=== PATIENT | male | born 1990 | race Caucasian/White ===

== ENCOUNTER 2020-02-10 07:44 | Emergency (ER) | payer BC, SELFPAY ==
[2020-02-10] VITALS (9 sets, daily range): BP systolic 128–150; BP diastolic 72–95; PULSE 71–101; RESP 16–18; TEMP 36.7; O2SAT 96–100; BMI 48.7
--- NOTE | 2020-02-10 07:50 | CT_ITS ---
WS: [id number] CT CHEST, ABDOMEN AND PELVIS WITH CONTRAST. HISTORY: trauma; fell 12 ft; chest pain TECHNIQUE: Contiguous 5 mm axial imaging performed through the chest, abdomen and pelvis with IV cont rast, oral contrast has been provided. Coronal and sagittal reformats chest. Coronal and sagittal ref ormats through the abdomen and pelvis. All CT scans at [facility] use at least one of the se dose optimization techniques: automated exposure control; mA and/or kV adjustment per patient size (includes targeted exams where dose is matched to clinical indication); or iterative reconstruction. CONTRAST: Omnipaque 300; 95 mL IV. DLP: 3340.7 mGy.cm COMPARISON: None available. Chest CT: Moderate size LEFT pneumothorax. No midline shift or tension pneumothorax. There is a small amount of dense pleural fluid from bleeding. No laceration is identified. Mild dependent changes in the RIGHT lung. Normal aorta and pulmonary artery. No laceration. No mediastinal hematoma widening. N o mass or adenopathy. Abnormal configuration of the RIGHT heart. RIGHT ventricle is more rounded in s hape. There is also a tiny amount of fluid adjacent to the RIGHT ventricle. Abdomen CT: Mild hepatic steatosis. No splenic or hepatic injury or adjacent fluid. Gallbladder and p ancreas are negative. No renal injury. 2.0 cm cyst upper pole LEFT kidney. Small extrarenal pelvis on the LEFT. Normal abdominal aorta. No retroperitoneal or mesenteric hematoma. No GI tract obstruction or wall thickening. Normal appendix. Pelvic CT: Well-distended urinary bladder. No free fluid in the pelvis. No adenopathy.1 Nondisplaced anterior LEFT third and sixth rib fractures are identified. LEFT ilium fracture. Fracture extends inferiorly to involve the acetabulum. Medial and anterior colu mn of the acetabulum are fractured but nondisplaced. There is also a nondisplaced buckle fracture thr ough the inferior LEFT pubic rami. No hip fracture. No sacral fracture or malalignment at the SI join ts. CT/CT chest abd pel w con* IMPRESSION: 1. Moderate-sized LEFT pneumothorax without tension. 2. Abnormal configuration of the RIGHT heart with a tiny amount of adjacent fl uid. Recommend echocardiography for additional evaluation. 3. Nondisplaced third LEFT rib fracture. Additional mildly depressed anterior LEFT sixth rib fracture. 4. Acute nondisplaced fracture involving the LEFT ilium extending inferiorly t o involve the acetabulum. Nondisplaced fractures involve the medial acetabulum and the anterior column. Mild buckle fracture inferior LEFT pubic rami. 5. Mild hepatic steatosis. 6. No hepatic or splenic injury. Notified IDA Chavez at 02/10/2020 9:03 AM.
--- NOTE | 2020-02-10 07:51 | ED_ITS ---
Documented by User: IDA Chavez 02/10/20 09:41 HPI - Fall General: Chief Complaint: Fall Stated Complaint: Fall from tree stand Time Seen by Provider: 02/10/20 07:50 Source: patient and EMS Mode of arrival: EMS Limitations: no limitations History of Present Illness: HPI Narrative: Patient is a 30-year-old male who presents to ED today via EMS for evaluation after falling out of his deer stand. Patient tells me his deer stand strap broke causing him to fall at a height of 12 feet onto his left side. Patient presents today with left-sided rib pain and left hip pain. He denies striking his head or LOC. He is not complaining of neck or back pain. Patient states after the fall he was not able to ambulate on his extremity due to discomfort. He was given 100 mcg fentanyl in route and upon arrival states he is feeling better. He does not complain of difficulty breathing or shortness of breath but does complain of pain in his left chest with inspiration. MD complaint: fall Fall from: from height (distance) (12 ft) Fall witnessed: no Place fall occurred: other (outdoors; deer stand) Loss of consciousness: None Symptoms prior to fall: none Associated symptoms-after fall: Reports chest pain; Denies abdominal pain, confusion, headache(s), lightheadedness or neck pain Review of Systems Const: Denies: fever(s) Eyes: Denies: change in vision, blurry vision, photophobia or seeing flashes ENMT: Denies: odynophagia Card: Reports: chest pain; Denies: palpitations, irregular heart rhythm, edema, swelling of feet/ankles, lightheadedness, syncope or pre-syncope Resp: Reports: pain on inspiration; Denies: dyspnea, productive cough, non-productive cough, wheezing, stridor, hemoptysis or chest congestion GI: Denies: abdominal pain, nausea, vomiting or diarrhea : Denies: flank pain Musc: Reports: joint pain (L hip); Denies: neck pain, back pain, extremity pain, extremity swelling or joint swelling Neuro: Denies: headache(s), numbness in extremities, weakness in extremities, sensory changes, dizziness, confusion or Slurred speech present [facility] ED PFSH: Medical History (Updated 02/10/20 @ 10:22 by Max Castrejon DO) Morbid obesity Physical Exam Const: COMMON NORMALS: patient oriented x3, no limitations and alert GENERAL APPEARANCE: cooperative and in distress (appears uncomfortable secondary to pain) NUTRITIONAL APPEARANCE: obese morbidly obese ORIENTATION/CONSCIOUSNESS: Yes oriented to person, Yes oriented to place and Yes oriented to time HENMT: COMMON NORMALS: normocephalic, atraumatic, hearing grossly normal bilaterally, EAC's normal and TM's normal bilaterally HEAD & SCALP: normal to inspection, normocephalic and atraumatic FACE & SINUS: normal facial exam and sinuses nontender EXTERNAL AUDITORY CANAL: EAC's normal TYMPANIC MEMBRANE: TM's normal bilaterally Eye: COMMON NORMALS: Equal, round and reactive pupils present and EOMs intact bilaterally GENERAL EYE: appearance normal, both eyes and all related structures PUPIL: Yes Equal, round and reactive pupils present Neck/C-Spine: COMMON NORMALS: full ROM CERVICAL SPINE: Yes cervical ROM normal, No pain with cervical ROM, No Cervical spine tenderness and No Paracervical muscle tenderness Chest: OTHER: TTP to L lateral chest; no crepitus noted; mild superficial abrasions noted Resp: EFFORT & INSPECTION: Yes other (shallow breathing-reports pain with deep inhalation) AUSCULTATION: diminished lung sounds (mildly on left however pt not taking deep breaths) Cardio: COMMON NORMALS: regular rate and regular rhythm RATE: regular rate RHYTHM: regular rhythm GI: COMMON NORMALS: Normal to inspection, nondistended, normoactive bowel sounds present, Soft to palpation, non-tender, No hepatosplenomegaly present and no masses PALPATION: Yes Soft to palpation and Yes No hepatosplenomegaly present Back/Pelvis: COMMON NORMALS: thoracic and lumbar spine normal to inspection, no thoracic nor lumbar tenderness and thoraco-lumbar ROM normal THORACIC SPINE/UPPER BACK: Yes normal to inspection and No thoracic spinal tenderness LUMBAR SPINE/LOWER BACK: Yes normal to inspection and No lumbar spinal tenderness Extremity: GENERAL: Yes normal exam except as noted LEFT LOWER EXTREMITY: Yes hip joint (TTP posterior/lateral L hip) Left hip: Yes neurovascular exam (normal) Neuro: JEM COMA SCALE: document GCS findings Jem coma scale eye opening: Spontaneous [place] coma scale verbal response: Orientated Jem coma scale motor response: Obey commands Jem coma scale total score: 15 COMMON NORMALS: patient oriented x3 SENSORIUM/ORIENTATION: Yes alert, Yes oriented to person, Yes oriented to place and Yes oriented to time Skin: NARRATIVE SKIN EXAM: mild abrasions to chest wall; otherwise normal skin exam Course ED course: Pt noted to have pneumothorax on CT chest/abdomen/pelvis. Dr. Castrejon immediately made aware and will assume care of patient. He will be transferred to a trauma room. Vital Signs: Vital signs: Vital Signs Temperature 98.0 F 02/10/20 07:46 Pulse Rate 93 02/10/20 09:21 Respiratory Rate 16 02/10/20 09:21 Blood Pressure 134/87 02/10/20 09:21 Pulse Oximetry 98 02/10/20 09:21 MDM - Fall Lab Data: Labs: Lab Results 02/10/20 02/10/20 02/10/20 Range/Units 08:45 08:45 08:45 WBC 20.4 H (4.0-10.0) 10^3/ uL RBC 5.09 (4.1-5.3) 10^6/u L Hgb 14.9 (11.7-16.6) g/dL Hct 45.3 (42.0-52.0) % MCV 89.0 (80-94) fL MCH 29.3 (28.0-34.0) pg MCHC 32.9 (30.0-36.0) g/dL RDW 12.3 (12.1-15.1) % Plt Count 277 (130-400) 10^3/c mm MPV 10.6 H (7.4-10.4) fL Neut % (Auto) 85.7 % Lymph % (Auto) 7.7 % [place] % (Auto) 5.2 % Eos % (Auto) 0.3 % Baso % (Auto) 0.2 % Neut # (Auto) 17.44 H (1.8-7.7) 10^3/u L Lymph # (Auto) 1.6 (0.8-4.8) 10^3/u L [place] # (Auto) 1.1 H (0.2-0.9) 10^3/u L Eos # (Auto) 0.1 (0.0-0.8) 10^3/u L Baso # (Auto) 0.1 (0.0-0.1) 10^3/u L Nucleated RBC % (a uto) 0 % Nucleated RBCs # 0.0 /100WBC PT 13.60 (12.1-14.9) SECO NDS INR 1.01 (0.8-1.2) APTT 27.2 (23.9-36.7) SECO NDS Sodium 137 (136-145) mmol/L Potassium 4.0 (3.5-5.1) mmol/L Chloride 103 (98-107) mmol/L Carbon Dioxide 25 (22-29) mmol/L Anion Gap 13.0 (5-19) BUN 11 (6-20) mg/dL Creatinine 0.8 (0.7-1.2) mg/dL GFR Calculation 112.0 (90-130) mL/min Glucose 115 (65-115) mg/dL Calculated Osmolal ity 281 L (285-295) mOsm/k g Calcium 8.4 L (8.5-10.5) mg/dL Total Bilirubin 0.5 (0.15-1.2) mg/dL AST 49 H (0-40) U/L ALT 65 H (0-41) U/L Alkaline Phosphata se 54 (40-130) IU/L Total Protein 7.5 (6.6-8.7) g/dL Albumin 4.5 (3.5-5.2) g/dL Globulin 3.0 (1.3-4.6) g/dL Urine Color (Yellow) Urine Appearance (CLEAR) Urine pH (5-7) Ur Specific Gravit y (1.005-1.030) Urine Protein (Negative) Urine Glucose (UA) (Normal) Urine Ketones (Negative) Urine Blood (Negative) Urine Nitrate (Negative) Urine Bilirubin (Negative) Urine Urobilinogen (Negative) mg/dL Ur Leukocyte Tejal ase (Negative) Urine RBC (0-2) /hpf Urine WBC (0-5) /hpf Ur Squamous Epith Cells (0-5) /hpf Amorphous Sediment Urine Bacteria (NONE) /hpf Urine Mucus /hpf 02/10/20 Range/Units 09:14 WBC (4.0-10.0) 10^3/ uL RBC (4.1-5.3) 10^6/u L Hgb (11.7-16.6) g/dL Hct (42.0-52.0) % MCV (80-94) fL MCH (28.0-34.0) pg MCHC (30.0-36.0) g/dL RDW (12.1-15.1) % Plt Count (130-400) 10^3/c mm MPV (7.4-10.4) fL Neut % (Auto) % Lymph % (Auto) % [place] % (Auto) % Eos % (Auto) % Baso % (Auto) % Neut # (Auto) (1.8-7.7) 10^3/u L Lymph # (Auto) (0.8-4.8) 10^3/u L [place] # (Auto) (0.2-0.9) 10^3/u L Eos # (Auto) (0.0-0.8) 10^3/u L Baso # (Auto) (0.0-0.1) 10^3/u L Nucleated RBC % (a uto) % Nucleated RBCs # /100WBC PT (12.1-14.9) SECO NDS INR (0.8-1.2) APTT (23.9-36.7) SECO NDS Sodium (136-145) mmol/L Potassium (3.5-5.1) mmol/L Chloride (98-107) mmol/L Carbon Dioxide (22-29) mmol/L Anion Gap (5-19) BUN (6-20) mg/dL Creatinine (0.7-1.2) mg/dL GFR Calculation (90-130) mL/min Glucose (65-115) mg/dL Calculated Osmolal ity (285-295) mOsm/k g Calcium (8.5-10.5) mg/dL Total Bilirubin (0.15-1.2) mg/dL AST (0-40) U/L ALT (0-41) U/L Alkaline Phosphata se (40-130) IU/L Total Protein (6.6-8.7) g/dL Albumin (3.5-5.2) g/dL Globulin (1.3-4.6) g/dL Urine Color Yellow (Yellow) Urine Appearance Clear (CLEAR) Urine pH 6.0 (5-7) Ur Specific Gravit y 1.015 (1.005-1.030) Urine Protein 1+ H (Negative) Urine Glucose (UA) Norm (Normal) Urine Ketones Negative (Negative) Urine Blood Neg (Negative) Urine Nitrate Negative (Negative) Urine Bilirubin Neg (Negative) Urine Urobilinogen Norm (Negative) mg/dL Ur Leukocyte Tejal ase Negative (Negative) Urine RBC None (0-2) /hpf Urine WBC None (0-5) /hpf Ur Squamous Epith Cells 0-4 H (0-5) /hpf Amorphous Sediment Not Reportable Urine Bacteria Trace (NONE) /hpf Urine Mucus 1+ /hpf Imaging Data^: CT chest/abd/pelvis: Radiologist's impression: [facility] [address] [place] [address] CT Scan Report Signed Patient: Raul Pham Unit #: [id number] : 1990 Age/Sex: 30 / M ADM Date: 02/10/20 Loc: ER Room/Bed: Attending Dr: Ordering Provider/Ordering MD: Lynn Souza Date of Service: 02/10/20 Procedure(s): CT chest abd pel w con* Accession Number(s): [id number] Report Number: [id number] WS: [id number] CT CHEST, ABDOMEN AND PELVIS WITH CONTRAST. HISTORY: trauma; fell 12 ft; chest pain TECHNIQUE: Contiguous 5 mm axial imaging performed through the chest, abdomen and pelvis with IV contrast, oral contrast has been provided. Coronal and sagittal reformats chest. Coronal and sagittal reformats through the abdomen and pelvis. All CT scans at [facility] use at least one of these dose optimization techniques: automated exposure control; mA and/or kV adjustment per patient size (includes targeted exams where dose is matched to clinical indication); or iterative reconstruction. CONTRAST: Omnipaque 300; 95 mL IV. DLP: 3340.7 mGy.cm COMPARISON: None available. Chest CT: Moderate size LEFT pneumothorax. No midline shift or tension pneumothorax. There is a small amount of dense pleural fluid from bleeding. No laceration is identified. Mild dependent changes in the RIGHT lung. Normal aorta and pulmonary artery. No laceration. No mediastinal hematoma widening. No mass or adenopathy. Abnormal configuration of the RIGHT heart. RIGHT ventricle is more rounded in shape. There is also a tiny amount of fluid adjacent to the RIGHT ventricle. Abdomen CT: Mild hepatic steatosis. No splenic or hepatic injury or adjacent fluid. Gallbladder and pancreas are negative. No renal injury. 2.0 cm cyst upper pole LEFT kidney. Small extrarenal pelvis on the LEFT. Normal abdominal aorta. No retroperitoneal or mesenteric hematoma. No GI tract obstruction or wall thickening. Normal appendix. Pelvic CT: Well-distended urinary bladder. No free fluid in the pelvis. No adenopathy.1 Nondisplaced anterior LEFT third and sixth rib fractures are identified. LEFT ilium fracture. Fracture extends inferiorly to involve the acetabulum. Medial and anterior column of the acetabulum are fractured but nondisplaced. There is also a nondisplaced buckle fracture through the inferior LEFT pubic rami. No hip fracture. No sacral fracture or malalignment at the SI joints. CT/CT chest abd pel w con* IMPRESSION: 1. Moderate-sized LEFT pneumothorax without tension. 2. Abnormal configuration of the RIGHT heart with a tiny amount of adjacent fluid. Recommend echocardiography for additional evaluation. 3. Nondisplaced third LEFT rib fracture. Additional mildly depressed anterior LEFT sixth rib fracture. 4. Acute nondisplaced fracture involving the LEFT ilium extending inferiorly to involve the acetabulum. Nondisplaced fractures involve the medial acetabulum and the anterior column. Mild buckle fracture inferior LEFT pubic rami. 5. Mild hepatic steatosis. 6. No hepatic or splenic injury. Notified IDA Chavez at 02/10/2020 9:03 AM. Dictated By: Nora Carcamo DO Signed By: Nora Carcamo DO Signed Date/Time: 02/10/20917 DD/ 7 CXR: Radiologist's impression: [address] [address] XRay Report Signed Patient: Raul Pham Unit #: [id number] : 1990 Age/Sex: 30 / M ADM Date: 02/10/20 Loc: ER Room/Bed: Attending Dr: Ordering Provider/Ordering MD: Max Castrejon DO Date of Service: 02/10/20 Procedure(s): XR chest 1V portable [id number] Accession Number(s): [id number] Report Number: [id number] WS: [id number] EXAM: AP CHEST: PORTABLE SUPINE DATE OF EXAM: 02/10/2020, 0911 hours COMPARISON: NONE HISTORY: Patient is 30 years old with fall out of a deer stand. Status post left t horacotomy tube placement for treatment of a left-sided pneumothorax. FINDINGS: The cardiac silhouette is normal in size. The mediastinal contours are prominent. Presumably related to the supine positioning. The pulmonary vascularity is normal. Both lungs are clear. Left thoracotomy tube in place entering the chest between the area of the third and fourth or fourth and fifth ribs. The distal tube appears to be behind the left hemidiaphragm. Some minimal pleural fluid or thickening demonstrated on the left. No pneumothorax. The T6 rib fracture seen on same day CT is not appreciated on this exam. XR/XR chest 1V portable [id number] IMPRESSION: Left thoracotomy tube in place. No findings of a pneumothorax. No definite pulmonary infiltrate. Dictated By: Kennedy Ramon MD Signed By: Kennedy Ramon MD Signed Date/Time: 02/10/20929 DD/ 5 Discharge Plan Discharge Patient Disposition: Xfer Other Clinical Impression: Closed traumatic fracture of ribs of left side with pneumothorax Acetabulum fracture, left Qualifiers: Encounter type: initial encounter Sublocation of acetabulum: anterior column Fracture type: closed Fracture alignment: nondisplaced Qualified Code(s): S32.435A - Nondisplaced fracture of anterior column [iliopubic] of left acetabulum, initial encounter for closed fracture Fall Qualifiers: Encounter type: initial encounter Qualified Code(s): W19.XXXA - Unspecified fall, initial encounter Discharge Date/Time: 02/10/20 09:48 Coding Level of Care Code ED Biazzi Nitrator Operator for Chg Fwd Exam Comprehensive Documented by User: Max Castrejon DO 02/10/20 10:28 HPI - Fall General: Chief Complaint: Fall Stated Complaint: Fall from tree stand Time Seen by Provider: 02/10/20 07:50 History of Present Illness: MD complaint: fall Onset (ago): minute(s) Fall from: from height (distance) (15 ft - ) Fall witnessed: no Place fall occurred: other (deer stand) Loss of consciousness: None Prolonged down time: no Symptoms prior to fall: none Context: other (Strap securing deer stand gave way) Location of injury: chest and pelvis Severity: severe Associated symptoms-after fall: Reports chest pain, difficulty walking and short of breath Review of Systems Card: Reports: chest pain Neuro: Reports: difficulty walking [facility] ED PFSH: Medical History (Updated 02/10/20 @ 10:22 by Max Castrejon DO) Morbid obesity Physical Exam Const: GENERAL APPEARANCE: cooperative ORIENTATION/CONSCIOUSNESS: Yes awake, Yes oriented to person, Yes oriented to place and Yes oriented to time HENMT: COMMON NORMALS: normocephalic, atraumatic and hearing grossly normal bilaterally HEAD & SCALP: normocephalic and atraumatic Eye: COMMON NORMALS: Equal, round and reactive pupils present, EOMs intact bilaterally, conjunctivae normal and no scleral icterus CONJUNCTIVA: Yes conjunctivae normal PUPIL: Yes Equal, round and reactive pupils present Neck/C-Spine: COMMON NORMALS: no JVD Resp: EFFORT & INSPECTION: Yes able to speak in complete sentences and Yes tachypneic AUSCULTATION: breath sounds absent on th left Cardio: COMMON NORMALS: no JVD, regular rate, regular rhythm and No murmurs present (Cardio) RATE: regular rate RHYTHM: regular rhythm GI: COMMON NORMALS: Soft to palpation and No hepatosplenomegaly present AUSCULTATION: Yes normoactive bowel sounds PALPATION: Yes Soft to palpation, No Tenderness to palpation present (GI), No Guarding due to palpation present (GI) and Yes No hepatosplenomegaly present Extremity: COMMON NORMALS: normal to inspection, capillary refill normal, no clubbing, cyanosis or edema, no calf tenderness and no pedal edema Neuro: SENSORIUM/ORIENTATION: Yes oriented to person, Yes oriented to place and Yes oriented to time Skin: NARRATIVE SKIN EXAM: Regions on the chest wall and the left and on the flank the level of the lower ribs on the left Procedures Chest Tube Chest Tube 1: Chest Tube Location: left, anterior axillary line and fourth interspace Size of Tube (cm): 26 Chest Tube Prep: Yes betadine prep and sterile drapes applied Local Anesthetic: lidocaine 1% Amount of anesthesia used (mL): 10 Incision Made With: #10 blade Post Procedure: sutured to skin and sterile dressing applied Tube Drainage: none Post Procedure CXR?: Yes Patient Tolerated Procedure: Yes Procedural Sedation Indication: other (Chest tube placement) Preparation: manager cardiac cath applied, pulse oximeter, supplemental O2 applied, suction/airway equipment at bedside and IV secured Fentanyl: IV Fentanyl dose (mcg): 50 (100) Midazolam: IV Midazolam dose (mg): 5 Patient Tolerated Procedure: well and no complications Complications: none Course Vital Signs: Vital signs: Vital Signs Temperature 98.0 F 02/10/20 07:46 Pulse Rate 93 02/10/20 09:21 Respiratory Rate 16 02/10/20 09:21 Blood Pressure 134/87 02/10/20 09:21 Pulse Oximetry 98 02/10/20 09:21 MDM - Fall MDM Narrative: Medical decision making narrative: Patient initially seen and evaluated by the midlevel to CT done there was a obvious pneumothorax there is also a pelvic fracture. Patient taken to trauma room I assessed as above patient remained stable but was having progressively increasing difficulty breathing. Patient was sedated and chest tube placed with good results. As we did not get a CT cleared he was transferred by air ambulance to [facility] in [place] for trauma services not available at our facility. Lab Data: Labs: Lab Results 02/10/20 02/10/20 02/10/20 Range/Units 08:45 08:45 08:45 WBC 20.4 H (4.0-10.0) 10^3/ uL RBC 5.09 (4.1-5.3) 10^6/u L Hgb 14.9 (11.7-16.6) g/dL Hct 45.3 (42.0-52.0) % MCV 89.0 (80-94) fL MCH 29.3 (28.0-34.0) pg MCHC 32.9 (30.0-36.0) g/dL RDW 12.3 (12.1-15.1) % Plt Count 277 (130-400) 10^3/c mm MPV 10.6 H (7.4-10.4) fL Neut % (Auto) 85.7 % Lymph % (Auto) 7.7 % [place] % (Auto) 5.2 % Eos % (Auto) 0.3 % Baso % (Auto) 0.2 % Neut # (Auto) 17.44 H (1.8-7.7) 10^3/u L Lymph # (Auto) 1.6 (0.8-4.8) 10^3/u L [place] # (Auto) 1.1 H (0.2-0.9) 10^3/u L Eos # (Auto) 0.1 (0.0-0.8) 10^3/u L Baso # (Auto) 0.1 (0.0-0.1) 10^3/u L Nucleated RBC % (a uto) 0 % Nucleated RBCs # 0.0 /100WBC PT 13.60 (12.1-14.9) SECO NDS INR 1.01 (0.8-1.2) APTT 27.2 (23.9-36.7) SECO NDS Sodium 137 (136-145) mmol/L Potassium 4.0 (3.5-5.1) mmol/L Chloride 103 (98-107) mmol/L Carbon Dioxide 25 (22-29) mmol/L Anion Gap 13.0 (5-19) BUN 11 (6-20) mg/dL Creatinine 0.8 (0.7-1.2) mg/dL GFR Calculation 112.0 (90-130) mL/min Glucose 115 (65-115) mg/dL Calculated Osmolal ity 281 L (285-295) mOsm/k g Calcium 8.4 L (8.5-10.5) mg/dL Total Bilirubin 0.5 (0.15-1.2) mg/dL AST 49 H (0-40) U/L ALT 65 H (0-41) U/L Alkaline Phosphata se 54 (40-130) IU/L Total Protein 7.5 (6.6-8.7) g/dL Albumin 4.5 (3.5-5.2) g/dL Globulin 3.0 (1.3-4.6) g/dL Urine Color (Yellow) Urine Appearance (CLEAR) Urine pH (5-7) Ur Specific Gravit y (1.005-1.030) Urine Protein (Negative) Urine Glucose (UA) (Normal) Urine Ketones (Negative) Urine Blood (Negative) Urine Nitrate (Negative) Urine Bilirubin (Negative) Urine Urobilinogen (Negative) mg/dL Ur Leukocyte Tejal ase (Negative) Urine RBC (0-2) /hpf Urine WBC (0-5) /hpf Ur Squamous Epith Cells (0-5) /hpf Amorphous Sediment Urine Bacteria (NONE) /hpf Urine Mucus /hpf 02/10/20 Range/Units 09:14 WBC (4.0-10.0) 10^3/ uL RBC (4.1-5.3) 10^6/u L Hgb (11.7-16.6) g/dL Hct (42.0-52.0) % MCV (80-94) fL MCH (28.0-34.0) pg MCHC (30.0-36.0) g/dL RDW (12.1-15.1) % Plt Count (130-400) 10^3/c mm MPV (7.4-10.4) fL Neut % (Auto) % Lymph % (Auto) % [place] % (Auto) % Eos % (Auto) % Baso % (Auto) % Neut # (Auto) (1.8-7.7) 10^3/u L Lymph # (Auto) (0.8-4.8) 10^3/u L [place] # (Auto) (0.2-0.9) 10^3/u L Eos # (Auto) (0.0-0.8) 10^3/u L Baso # (Auto) (0.0-0.1) 10^3/u L Nucleated RBC % (a uto) % Nucleated RBCs # /100WBC PT (12.1-14.9) SECO NDS INR (0.8-1.2) APTT (23.9-36.7) SECO NDS Sodium (136-145) mmol/L Potassium (3.5-5.1) mmol/L Chloride (98-107) mmol/L Carbon Dioxide (22-29) mmol/L Anion Gap (5-19) BUN (6-20) mg/dL Creatinine (0.7-1.2) mg/dL GFR Calculation (90-130) mL/min Glucose (65-115) mg/dL Calculated Osmolal ity (285-295) mOsm/k g Calcium (8.5-10.5) mg/dL Total Bilirubin (0.15-1.2) mg/dL AST (0-40) U/L ALT (0-41) U/L Alkaline Phosphata se (40-130) IU/L Total Protein (6.6-8.7) g/dL Albumin (3.5-5.2) g/dL Globulin (1.3-4.6) g/dL Urine Color Yellow (Yellow) Urine Appearance Clear (CLEAR) Urine pH 6.0 (5-7) Ur Specific Gravit y 1.015 (1.005-1.030) Urine Protein 1+ H (Negative) Urine Glucose (UA) Norm (Normal) Urine Ketones Negative (Negative) Urine Blood Neg (Negative) Urine Nitrate Negative (Negative) Urine Bilirubin Neg (Negative) Urine Urobilinogen Norm (Negative) mg/dL Ur Leukocyte Tejal ase Negative (Negative) Urine RBC None (0-2) /hpf Urine WBC None (0-5) /hpf Ur Squamous Epith Cells 0-4 H (0-5) /hpf Amorphous Sediment Not Reportable Urine Bacteria Trace (NONE) /hpf Urine Mucus 1+ /hpf Critical Care Time Critical Care Time: Critical Care Time: Yes Total Critical Care Time: 30 Attestation: This case had a high probability of a clinically significant, sudden, or life threatening deterioration of this patient's condition which required my full and direct attention, intervention and personal management. Discharge Plan Discharge Patient Disposition: Xfer Other Clinical Impression: Closed traumatic fracture of ribs of left side with pneumothorax Acetabulum fracture, left Qualifiers: Encounter type: initial encounter Sublocation of acetabulum: anterior column Fracture type: closed Fracture alignment: nondisplaced Qualified Code(s): S32.435A - Nondisplaced fracture of anterior column [iliopubic] of left acet abulum, initial encounter for closed fracture Fall Qualifiers: Encounter type: initial encounter Qualified Code(s): W19.XXXA - Unspecified fall, initial encounter Discharge Date/Time: 02/10/20 09:48 Coding Level of Care Code ED Biazzi Nitrator Operator for ro Fwd Exam Comprehensive
[2020-02-10] MEDS: morphine 4 mg/mL SDV 1 mL IVP (08:03)
--- NOTE | 2020-02-10 08:05 | PC.NURSE ---
Pt to CT
[2020-02-10] MEDS: iohexol 300 mg/mL 100 mL Btl IV (08:12)
--- NOTE | 2020-02-10 08:41 | XR_ITS ---
WS: [id number] EXAM: XR cervical spine 1Vport [id number] DATE OF EXAMINATION: 02/10/2020, 0830 hours COMPARISON: None. HISTORY: 30 years old with neck trauma. Fell out of a tree stand. FINDINGS: Crosstable lateral imaging shows normal height of C1-C4 vertebrae. Predens space and prevertebral sof t tissue plane are normal. The inferior aspect of the cervical spine is not evaluated. Either complet ion of plain film imaging in the department or CT of the cervical spine is recommended. XR/XR cervical spine 1Vport [id number] IMPRESSION: Crosstable lateral cervical spine shows no fracture or malalignment C1-C4. Furt her evaluation of the entire cervical spine recommended.
--- NOTE | 2020-02-10 08:43 | PC.NURSE ---
Pt moved to room [address] for chest tube insertion
[2020-02-10] MEDS: fentaNYL 50 mcg/mL INJ 2mL 100 MCG IVP (08:52)
[2020-02-10] MEDS: midazolam 1 mg/mL INJ 2 mL 6 MG (08:53)
--- NOTE | 2020-02-10 09:09 | PC.NURSE ---
Chest tube inserted at bedside by Dr Castrejon. Christian catheter placed and urine collected per VO. Pt tolerated procedures well. Pt placed in gown and made comfortable. Pt was placed in C-collar during xrays.
[2020-02-10] MEDS: lidocaine 1% INJ 20 mL (09:13)
--- NOTE | 2020-02-10 09:13 | USCV_ITS ---
Ankit Raul Age: 30 Gender: M : 1990 Exam Date: 02/10/2020 09:26 Ordering Phys: Lynn Souza Technologist: Jane Dixon Exam Location: [facility] Indication: FAST EXAM FOR EFFUSION ONLY BP: / HR: Rhythm: Sinus Technical Quality: MEASUREMENTS (Male / Female) Normal Values FINDINGS Left Ventricle Possible normal LV size with a slightly diminished ejection fraction. Right Ventricle Possibly of normal size aortic root appears to be of normal size Right Atrium Left Atrium Mitral Valve Aortic Valve Tricuspid Valve Pulmonic Valve Pericardium No pericardial effusion Aorta CONCLUSIONS No pericardial effusion noted. The left ventricle appears to be of normal size with a slightly diminished ejection fraction. Right ventricle appears to be of normal size. Aortic root appears to be of normal size. Very limited study Dr Jaime Ely MD FACC (Electronically Signed) Final Date: 10 February 2020 18:33 S
--- NOTE | 2020-02-10 09:15 | XR_ITS ---
WS: [id number] EXAM: AP CHEST: PORTABLE SUPINE DATE OF EXAM: 02/10/2020, 0911 hours COMPARISON: NONE HISTORY: Patient is 30 years old with fall out of a deer [place]. Status post left thoracotomy tube placement fo r treatment of a left-sided pneumothorax. FINDINGS: The cardiac silhouette is normal in size. The mediastinal contours are prominent. Presumably relat ed to the supine positioning. The pulmonary vascularity is normal. Both lungs are clear. Left thor acotomy tube in place entering the chest between the area of the third and fourth or fourth and fifth ribs. The distal tube appears to be behind the left hemidiaphragm. Some minimal pleural fluid or thi ckening demonstrated on the left. No pneumothorax. The T6 rib fracture seen on same day CT is not a ppreciated on this exam. XR/XR chest 1V portable [id number] IMPRESSION: Left thoracotomy tube in place. No findings of a pneumothorax. No definite pulm onary infiltrate.
[2020-02-10 09:17] LABS: Basophils # 0.1 10^3/uL (0.0-0.1); Basophils % 0.2 %; Eosinophils # 0.1 10^3/uL (0.0-0.8); Eosinophils % 0.3 %; Hematocrit 45.3 % (42.0-52.0); Hemoglobin 14.9 g/dL (11.7-16.6); Lymphocytes # 1.6 10^3/uL (0.8-4.8); Lymphocytes % 7.7 %; Mean Corpuscular HGB Conc 32.9 g/dL (30.0-36.0); Mean Corpuscular Hemoglobin 29.3 pg (28.0-34.0); Mean Platelet Volume 10.6 fL (7.4-10.4); Monocytes # 1.1 10^3/uL (0.2-0.9); Monocytes % 5.2 %; Neutrophils # 17.44 10^3/uL (1.8-7.7); Neutrophils % 85.7 %; Nucleated Red Blood Cells % 0 %; Platelet Count 277 10^3/cmm (130-400); Red Blood Count 5.09 10^6/uL (4.1-5.3); Red Cell Distribution Width 12.3 % (12.1-15.1); White Blood Count 20.4 10^3/uL (4.0-10.0)
[2020-02-10 09:27] LABS: INR 1.01 (0.8-1.2)
[2020-02-10 09:28] LABS: Partial Thromboplastin Time 27.2 SECONDS (23.9-36.7)
[2020-02-10 09:31] LABS: Add Urine Microscopic? YES; Bilirubin Urine Neg (Negative); Blood Urine Neg (Negative); Glucose Urine UA Norm (Normal); Ketones Urine Negative (Negative); Leukocyte Esterase Urine Negative (Negative); Nitrate Urine Negative (Negative); Protein Urine 1+ (Negative); Specific Gravity, Urine 1.015 (1.005-1.030); Urine Appearance Clear (CLEAR); Urine Color Yellow (Yellow); Urobilinogen Urine Norm (Negative)
[2020-02-10 09:36] LABS: Alanine Aminotransferase 65 U/L (0-41); Albumin Level 4.5 g/dL (3.5-5.2); Alkaline Phosphatase 54 IU/L (40-130); Aspartate Amino Transferase 49 U/L (0-40); Blood Urea Nitrogen 11 mg/dL (6-20); Calcium 8.4 mg/dL (8.5-10.5); Carbon Dioxide 25 mmol/L (22-29); Chloride 103 mmol/L (98-107); Glucose 115 mg/dL (65-115); Osmolality Calculated 281 mOsm/kg (285-295); Sodium 137 mmol/L (136-145); Total Bilirubin 0.5 mg/dL (0.15-1.2); Total Protein 7.5 g/dL (6.6-8.7)
[2020-02-10 09:37] LABS: Add Urine Culture? No; Bacteria Urine TRACE /hpf; Mucus Urine 1+ /hpf; Squamous Epithelial Cell Urine 0-4 /hpf (0-5)
== END 2020-02-10 09:48 | disposition other institution (70) ==
PROVIDERS: Physician Assistant; Emergency Provider Family Medicine
DX: S27.0XXA Traumatic pneumothorax, initial encounter (principal); S22.42XA Multiple fractures of ribs, left side, initial encounter for closed fracture; S32.435A Nondisplaced fracture of anterior column [iliopubic] of left acetabulum, initial encounter for closed fracture; W14.XXXA Fall from tree, initial encounter
CPT/HCPCS: 12345; 32551; 51702; 71045; 71260; 72020; 74177; 80053; 81001; 85025; 85610; 85730; 93308; 96361; 96374; 96375; 99284; 99291; J2250; J2270; J3010; Q9967